=== PATIENT | female | born 1980 | race Caucasian/White ===

== ENCOUNTER 2017-08-10 09:50 | Emergency (ER) | payer OTHER, SELFPAY ==
[2017-08-10 10:25] VITALS: BP 125/81; PULSE 84; RESP 20; TEMP 36.9; O2SAT 100; BMI 24.9
--- NOTE | 2017-08-10 10:54 | HMH.EDUTC ---
[facility] Disposition Clinical Impression: Vertigo Sinusitis Qualifiers: Sinusitis location: pansinusitis Chronicity: acute Recurrence: not specified as recurrent Qualified Code(s): J01.40 - Acute pansinusitis, unspecified Disposition: Home, Self-Care Condition on Discharge: Good Instructions: DI for Sinusitis, DI for Vertigo Additional Instructions: * Start antibiotic and be sure to take as ordered for the FULL length of time even if you feel better. Sinus infections do not get better overnight. It may take 2-3 days to notice much improvement so be sure to use conservative measures as discussed for symptoms. * Flonase 2 sprays each nostril daily to help with nasal congestion, sinus and ear pressure/inflammation * Start steroid today. * Meclizine as needed for vertigo. Start with 1 no more then 3 times a day but if severe again, you can take two like we gave you here in the clinic. This can cause drowsiness. No driving after taking it or while you have vertigo * Lots of fluids * Sleep elevated * Humidifier/vaporizer Prescriptions: Doxycycline Hyclate 100 mg PO BID #20 tablet. Fluticasone Propionate [Flonase 50mcg nasal spray 16gm] 2 spr NS DAILY #1 bottle Meclizine HCl [Meclizine 25mg Tab] 25 - 50 mg PO TID PRN #15 tab PRN Reason: Vertigo Referrals: Navin Bejarano MD [Physician] - (Call his office and request a follow up appt if no noticeable improvement over the next 2-3 days or if unresolved after 10 days of antibiotics. If symptoms worsen or new ones begin or vertigo severe again despite meclizine, follow up immediately in ER/[facility]) Time of Disposition: 12:01 Medical Decision Making Vital Signs: 08/10/17 10:25 Temperature 98.5 F Temperature Source Oral Pulse Rate [Right Radial] 84 Respiratory Rate 20 Blood Pressure [Right Arm] 125/81 Blood Pressure Mean [Right Arm] 95 Blood Pressure Source [Right Arm] Automatic Cuff Blood Pressure Position [Right Arm] Sitting 02 Sat by Pulse Oximetry 100 Oxygen Delivery Method Room Air Orders (Tests/Meds): ED MEDICATIONS Discontinued Medications Generic Name Dose Route Start Last Admin Trade Name Freq PRN Reason Stop Dose Admin Meclizine HCl 50 mg 08/10/17 11:04 08/10/17 11:05 Antivert 25mg Tablet PO 08/10/17 11:05 50 mg ONCE ONE Administration Ondansetron HCl 4 mg 08/10/17 11:04 08/10/17 11:05 Zofran 4mg Odt SL 08/10/17 11:05 4 mg ONCE ONE Administration - Ervin Inquiry Pt receiving controlled substance: No - Reevaluation(s) Time: 11:52 Reevaluation #1: dizziness resolved. Patient talking and moving her head now without any difficulty whereas before, she was hesitant to move her head at all. Nausea resolved. Drinking diet pepsi w/o difficulty. Discussed POC. Agreeable to FU as discussed[place] [facility] [place] Stated complaint: DIZZY Time Seen by Provider: 08/10/17 10:45 Mode of Arrival: Ambulatory Source of Information: Patient Description of Symptoms (Recalled from Triage Doc. by RN): PT C/O HEAD CONGESTION AND DIZZINESS. HEENT Symptoms (Recalled from RN notes): No Resp Symptoms (Recalled from RN notes): No Skin Symptoms (Recalled from RN notes): No MS Symptoms (Recalled from RN notes): No Functional Status (Recalled from RN notes): NA - History of Present Illness Provider Complaint: c/o severe dizziness. Started this morning. Has experienced in the past but never this severe. 3-4 weeks of nasal drainage, sinus pressure, PND. Dx sinusitis 2 weeks ago. Treated w/ steroids only. feels drainage improved but never resolved and still having ongoing sinus pressure. Hasn't taken or tried anything else for that or since dizziness started this morning. Brother w/ hx of vertigo and reports this feels like what he describes. First noticed dizziness this morning when she rolled over in bed. Noticed it was worse on one side then the other so laid on the better side. When time to get up, moved slow but didn't really notice dizziness. Was i
--- NOTE | 2017-08-10 11:03 | ED_ITS ---
[facility] Disposition Clinical Impression: Vertigo Sinusitis Qualifiers: Sinusitis location: pansinusitis Chronicity: acute Recurrence: not specified as recurrent Qualified Code(s): J01.40 - Acute pansinusitis, unspecified Disposition: Home, Self-Care Condition on Discharge: Good Instructions: DI for Sinusitis, DI for Vertigo Additional Instructions: * Start antibiotic and be sure to take as ordered for the FULL length of time even if you feel better. Sinus infections do not get better overnight. It may take 2-3 days to notice much improvement so be sure to use conservative measures as discussed for symptoms. * Flonase 2 sprays each nostril daily to help with nasal congestion, sinus and ear pressure/inflammation * Start steroid today. * Meclizine as needed for vertigo. Start with 1 no more then 3 times a day but if severe again, you can take two like we gave you here in the clinic. This can cause drowsiness. No driving after taking it or while you have vertigo * Lots of fluids * Sleep elevated * Humidifier/vaporizer Prescriptions: Doxycycline Hyclate 100 mg PO BID #20 tablet. Fluticasone Propionate [Flonase 50mcg nasal spray 16gm] 2 spr NS DAILY #1 bottle Meclizine HCl [Meclizine 25mg Tab] 25 - 50 mg PO TID PRN #15 tab PRN Reason: Vertigo Referrals: Navin Bejarano MD [Physician] - (Call his office and request a follow up appt if no noticeable improvement over the next 2-3 days or if unresolved after 10 days of antibiotics. If symptoms worsen or new ones begin or vertigo severe again despite meclizine, follow up immediately in ER/[facility]) Time of Disposition: 12:01 Medical Decision Making Vital Signs: 08/10/17 10:25 Temperature 98.5 F Temperature Source Oral Pulse Rate [Right Radial] 84 Respiratory Rate 20 Blood Pressure [Right Arm] 125/81 Blood Pressure Mean [Right Arm] 95 Blood Pressure Source [Right Arm] Automatic Cuff Blood Pressure Position [Right Arm] Sitting 02 Sat by Pulse Oximetry 100 Oxygen Delivery Method Room Air Orders (Tests/Meds): ED MEDICATIONS Discontinued Medications Generic Name Dose Route Start Last Admin Trade Name Freq PRN Reason Stop Dose Admin Meclizine HCl 50 mg 08/10/17 11:04 08/10/17 11:05 Antivert 25mg Tablet PO 08/10/17 11:05 50 mg ONCE ONE Administration Ondansetron HCl 4 mg 08/10/17 11:04 08/10/17 11:05 Zofran 4mg Odt SL 08/10/17 11:05 4 mg ONCE ONE Administration - Ervin Inquiry Pt receiving controlled substance: No - Reevaluation(s) Time: 11:52 Reevaluation #1: dizziness resolved. Patient talking and moving her head now without any difficulty whereas before, she was hesitant to move her head at all. Nausea resolved. Drinking diet pepsi w/o difficulty. Discussed POC. Agreeable to FU as discussed. [facility] – [place] - General Stated complaint: DIZZY Time Seen by Provider: 08/10/17 10:45 Mode of Arrival: Ambulatory Source of Information: Patient Description of Symptoms (Recalled from Triage Doc. by RN): PT C/O HEAD CONGESTION AND DIZZINESS. HEENT Symptoms (Recalled from RN notes): No Resp Symptoms (Recalled from RN notes): No Skin Symptoms (Recalled from RN notes): No MS Symptoms (Recalled from RN notes): No Functional Status (Recalled from RN notes): NA - History of Present Illness Provider Complaint: c/o severe dizziness. Started this morning. Has experienced in the past but never
== END 2017-08-10 12:04 | disposition home or self-care (01) ==
PROVIDERS: Emergency Provider Nurse Practitioner Family
DX: R42 Dizziness and giddiness (principal); Z79.899 Other long term (current) drug therapy
CPT/HCPCS: 99202

== ENCOUNTER → 2023-02-18 15:57 | Outpatient (CLI) | payer OTHER, SELFPAY ==
--- NOTE | 2023-02-18 16:00 | XR_ITS ---
FINAL REPORT CLINICAL HISTORY: R great toe injury FINDINGS: AP, oblique and lateral views of the right foot were obtained. There is no prior exam for comparison. There is no acute fracture or dislocation. There is degenerative disease, most pronounced at the first MTP joint. Soft tissues are normal. IMPRESSION: Degenerative disease, most pronounced at the first MTP joint. No acute bony abnormality. Reviewed, Interpreted and Dictated by Eleni Brasher MD Transcribed by Sabra Cardozo Authenticated and [facility]
== END ==
PROVIDERS: PCP Physician Assistant; Visit Provider Student in an Organized Health Care Education/Training Program
DX: M79.671 Pain in right foot (principal); S91.201A Unspecified open wound of right great toe with damage to nail, initial encounter; S99.921A Unspecified injury of right foot, initial encounter
CPT/HCPCS: 73630